=== PATIENT | female | born 1940 | race Caucasian/White ===

== ENCOUNTER 2018-05-01 04:14 | Inpatient (IN) | payer OTHER ==
[~2018-05-01] VITALS: Ht 167.6 cm; Wt 61.4 kg
[~2018-05-01 04:14] MED LIST: ASA; GLIPIZIDE; LISINOPRIL; METFORMIN; SERTRALINE
[2018-05-01] MEDS ORDERED: GLIP5TAB11 PO (04:22)
[2018-05-01] MEDS ORDERED: ATOR20TA65 PO (04:22)
[2018-05-01] MEDS ORDERED: ASPI81TA39 PO (04:22)
[2018-05-01] MEDS ORDERED: METF-446 PO (04:22)
[2018-05-01] MEDS ORDERED: AMLO5TAB66 PO (04:22)
[2018-05-01 04:34] LABS: GLUCOSE,POINT OF CARE 276 MG/DL (70-110)
[2018-05-01 05:09] LABS: BASOPHILS % (AUTO) 0.6 % (0.0-2.0); EOSINOPHILS % (AUTO) 0 % (1.0-6.0); HEMATOCRIT 33.3 % (36-46); HEMOGLOBIN 10.9 g/dL (12.0-16.0); LYMPHOCYTES % (AUTO) 6.5 % (22.0-44.0); MEAN CORPUSCULAR HEMOGLOBIN 29.3 pg (26.0-34.0); MEAN CORPUSCULAR HGB CONC 32.8 G/dL (31.0-37.0); MEAN CORPUSCULAR VOLUME 89 fL (80-100); MONOCYTES # (AUTO) 0.6 K/uL (0.1-1.0); MONOCYTES % (AUTO) 4.1 % (2.0-9.0); NEUTROPHILS # (AUTO) 13.1 K/uL (1.8-7.7); RED BLOOD CELL COUNT(AUTO) 3.74 MIL/uL (4.00-5.20); RED CELL DISTRIBUTION WIDTH 12.6 % (11.5-14.5)
[2018-05-01 05:18] LABS: NEUTROPHILS % (AUTO) 88.8 % (40.0-70.0)
[2018-05-01 05:27] LABS: ANION GAP 11 mmol/L (8-16); CALCIUM, TOTAL 8.7 mg/dL (8.8-10.5); CARBON DIOXIDE 27 mmol/L (22-29); CHLORIDE 100 mmol/L (98-107); CREATININE 0.63 mg/dL (0.60-1.30); GLUCOSE,RANDOM 276 mg/dL (70-110); POTASSIUM 4.3 mmol/L (3.5-5.1); SODIUM SERUM 138 mmol/L (136-145); UREA NITROGEN, BLOOD 12 mg/dL (7-18)
[2018-05-01 05:28] LABS: GLOMERULAR FILTR. RATE CALC > 60 mL/min (>60); PLATELET COUNT (AUTO) 248 K/uL (150-450)
[2018-05-01 05:33] LABS: ALANINE AMINOTRANSFERASE 17 U/L (12-78); ALBUMIN 3.2 g/dL (3.4-5.0); ALKALINE PHOSPHATASE 87 U/L (46-116); ASPARTATE AMINOTRANSFERASE 12 U/L (15-37); BILIRUBIN,TOTAL 0.5 mg/dL (0.1-1.0); LIPASE 95 U/L (73-393); TOTAL PROTEIN, SERUM 7.3 g/dL (6.4-8.2)
[2018-05-01] MEDS ORDERED: SODIUM CHLORIDE 0.9% 500 ML IV ONE ×2 (06:45→08:45)
[2018-05-01 06:59] LABS: APPEARANCE,URINE CLOUDY (CLEAR); BILIRUBIN,URINE NEGATIVE (NEGATIVE); GLUCOSE, URINE (UA) >=1000 mg/dL (NEGATIVE); KETONES,URINE 40 mg/dL (NEGATIVE); LEUKOCYTE ESTERASE ,URINE NEGATIVE (NEGATIVE); NITRATE,URINE NEGATIVE (NEGATIVE); OCCULT BLOOD,URINE NEGATIVE (NEGATIVE); PROTEIN,URINE SEE CONFIRM (NEGATIVE)
[2018-05-01 07:38] LABS: GLUCOSE,POINT OF CARE 214 MG/DL (70-110)
[2018-05-01 07:54] LABS: SULFOSALICYLIC ACID,URINE 2+ (Negative)
[2018-05-01 07:57] LABS: AMORPHOUS SEDIMENT,UR Many /LPF (None Seen); BACTERIA,URINE None Seen /HPF (None Seen); RBC,URINE None Seen /HPF (0-2); SQUAMOUS EPITHELIAL CELL,UR Rare /LPF (None Seen); WBC,URINE 0-2 /HPF (0-5)
[2018-05-01] MEDS ORDERED: MECLIZINE HCL 25 MG TABLET PO ONE (08:30)
[2018-05-01] MEDS ORDERED: ONDANSETRON HCL 4 MG/2 ML VIAL IVP ONE (08:45)
[2018-05-01 13:32] VITALS: BP 165/77
[2018-05-01] MEDS ORDERED: MECLIZINE HCL 25 MG TABLET PO PRN ×2 (14:30→18:15)
[2018-05-01 15:20] VITALS: BP 158/78
[2018-05-01] MEDS ORDERED: 0.9% SODIUM CHLORIDE 10 ML SYRINGE IVP PRN (18:15)
[2018-05-01] MEDS ORDERED: ONDANSETRON HCL 4 MG/2 ML VIAL IVP PRN (18:15)
[2018-05-01] MEDS ORDERED: DEXTROSE 50%-WATER 25 GM/50 ML SYRINGE IVP PRN (18:15)
[2018-05-01] MEDS ORDERED: OxyCODONE HCL/ACETAMINOPHEN 5-325 MG TABLET PO PRN ×2 (18:15)
[2018-05-01] MEDS: INSULIN LISPRO 100 UNITS/ML SQ PRN ×2 (18:34→20:25)
[2018-05-01 19:00] VITALS: BP 150/75
[2018-05-01] MEDS: ASPIRIN 81 MG CHEWABLE TABLET PO SCH (19:02)
[2018-05-01] MEDS: PANTOPRAZOLE SODIUM 40 MG/VIAL IVP SCH (19:02)
[2018-05-01] MEDS: ATORVASTATIN CALCIUM 20 MG TABLET PO SCH (19:02)
[2018-05-01] MEDS: AmLODIPine BESYLATE 5 MG TABLET PO SCH (19:03)
[2018-05-01 19:46] VITALS: BP 147/66
[2018-05-01 20:11] LABS: GLUCOMETER DEV NAME(LOC) 5S.2; GLUCOSE,POINT OF CARE 295 MG/DL (70-110)
[2018-05-01] MEDS: DOCUSATE SODIUM 100 MG CAPSULE PO SCH (20:18)
[2018-05-01 21:30] LABS: GLUCOMETER DEV NAME(LOC) 5N.2; GLUCOSE,POINT OF CARE 197 MG/DL (70-110)
[2018-05-01 23:46] VITALS: BP 135/60
[2018-05-02 05:39] VITALS: BP 144/72
[2018-05-02 06:07] LABS: BASOPHILS % (AUTO) 0.5 % (0.0-2.0); EOSINOPHILS % (AUTO) 1.6 % (1.0-6.0); HEMATOCRIT 33.6 % (36-46); HEMOGLOBIN 11.1 g/dL (12.0-16.0); LYMPHOCYTES # (AUTO) 2.5 K/uL (1.0-4.8); LYMPHOCYTES % (AUTO) 26.2 % (22.0-44.0); MEAN CORPUSCULAR HEMOGLOBIN 29.2 pg (26.0-34.0); MEAN CORPUSCULAR HGB CONC 33.2 G/dL (31.0-37.0); MEAN CORPUSCULAR VOLUME 88 fL (80-100); MONOCYTES # (AUTO) 0.9 K/uL (0.1-1.0); MONOCYTES % (AUTO) 9.4 % (2.0-9.0); NEUTROPHILS % (AUTO) 62.3 % (40.0-70.0); PLATELET COUNT (AUTO) 267 K/uL (150-450); RED BLOOD CELL COUNT(AUTO) 3.82 MIL/uL (4.00-5.20); RED CELL DISTRIBUTION WIDTH 12.9 % (11.5-14.5)
[2018-05-02] MEDS: INSULIN LISPRO 100 UNITS/ML SQ PRN ×4 (06:19→20:22)
[2018-05-02 06:26] LABS: ANION GAP 5 mmol/L (8-16); CALCIUM, TOTAL 9.2 mg/dL (8.8-10.5); CARBON DIOXIDE 31 mmol/L (22-29); CHLORIDE 104 mmol/L (98-107); CREATININE 0.65 mg/dL (0.60-1.30); GLUCOSE,RANDOM 170 mg/dL (70-110); POTASSIUM 4.3 mmol/L (3.5-5.1); SODIUM SERUM 140 mmol/L (136-145); UREA NITROGEN, BLOOD 15 mg/dL (7-18)
[2018-05-02 06:36] LABS: GLOMERULAR FILTR. RATE CALC > 60 mL/min (>60)
[2018-05-02 06:54] LABS: GLUCOMETER DEV NAME(LOC) 5N.2; GLUCOSE,POINT OF CARE 153 MG/DL (70-110)
[2018-05-02 07:25] VITALS: BP 131/65
[2018-05-02] MEDS: DOCUSATE SODIUM 100 MG CAPSULE PO SCH ×2 (08:50→20:17)
[2018-05-02] MEDS: ATORVASTATIN CALCIUM 20 MG TABLET PO SCH (08:50)
[2018-05-02] MEDS: ASPIRIN 81 MG CHEWABLE TABLET PO SCH (08:50)
[2018-05-02] MEDS: AmLODIPine BESYLATE 5 MG TABLET PO SCH (08:50)
[2018-05-02] MEDS: PANTOPRAZOLE SODIUM 40 MG/VIAL IVP SCH (08:50)
[2018-05-02 11:22] VITALS: BP 147/74
[2018-05-02 11:54] LABS: GLUCOMETER DEV NAME(LOC) 5S.2; GLUCOSE,POINT OF CARE 279 MG/DL (70-110)
[2018-05-02] MEDS: MetFORMIN HCL 500 MG TABLET PO SCH (17:05)
[2018-05-02 17:28] LABS: GLUCOMETER DEV NAME(LOC) 4E.; GLUCOSE,POINT OF CARE 199 MG/DL (70-110)
[2018-05-02 19:49] VITALS: BP 157/84
[2018-05-02 22:59] LABS: GLUCOMETER DEV NAME(LOC) 4E.; GLUCOSE,POINT OF CARE 257 MG/DL (70-110)
[2018-05-02 23:16] VITALS: BP 152/81
[2018-05-03 04:15] VITALS: BP 149/79
[2018-05-03] MEDS: INSULIN LISPRO 100 UNITS/ML SQ PRN ×2 (05:56→12:06)
[2018-05-03] MEDS ORDERED: GlipiZIDE 5 MG TABLET PO SCH (06:30)
[2018-05-03 08:05] VITALS: BP 135/74
[2018-05-03 08:09] LABS: GLUCOMETER DEV NAME(LOC) 4E.; GLUCOSE,POINT OF CARE 192 MG/DL (70-110)
[2018-05-03] MEDS: MetFORMIN HCL 500 MG TABLET PO SCH (08:26)
[2018-05-03] MEDS: AmLODIPine BESYLATE 5 MG TABLET PO SCH (08:26)
[2018-05-03] MEDS: ATORVASTATIN CALCIUM 20 MG TABLET PO SCH (08:26)
[2018-05-03] MEDS: ASPIRIN 81 MG CHEWABLE TABLET PO SCH (08:26)
[2018-05-03] MEDS: PANTOPRAZOLE SODIUM 40 MG/VIAL IVP SCH (08:26)
[2018-05-03] MEDS: DOCUSATE SODIUM 100 MG CAPSULE PO SCH (08:26)
[2018-05-03 12:06] VITALS: BP 142/68
[2018-05-03 13:39] LABS: GLUCOMETER DEV NAME(LOC) 4E.; GLUCOSE,POINT OF CARE 164 MG/DL (70-110)
== END 2018-05-03 13:40 | disposition home or self-care (01) | DRG 639 ==
LOC: EMS 04:14 → 4E 11:51 → 5N 11:53 → EMS 12:35 → 4E 05-02 15:10
PROVIDERS: ADMIT Internal Medicine; ATTEND Internal Medicine
DX: E11.65 Type 2 diabetes mellitus with hyperglycemia (principal); R42 Dizziness and giddiness; I10 Essential (primary) hypertension; E78.00 Pure hypercholesterolemia, unspecified; Z90.710 Acquired absence of both cervix and uterus; Z79.84 Long term (current) use of oral hypoglycemic drugs; Z79.899 Other long term (current) drug therapy; Z79.82 Long term (current) use of aspirin
CPT/HCPCS: 70450; 70551; 93005; 93880; 96361; 96374; C9113; G0378; J2405; J7040

== ENCOUNTER 2021-07-20 16:41 | Emergency (ER) | payer OTHER ==
[~2021-07-20] VITALS: Ht 162.6 cm; Wt 57.2 kg
[~2021-07-20 16:41] MED LIST changes: +AMLO5TAB66 PO; -ASA; +ASPI81TA39 PO; +ATOR20TA65 PO; +GLIP5TAB11 PO; -GLIPIZIDE; -LISINOPRIL; +METF-446 PO; -METFORMIN; -SERTRALINE
[2021-07-20] MEDS ORDERED: ACETAMINOPHEN 325 MG TABLET PO ONE (17:45)
[2021-07-20] MEDS ORDERED: LISI40TA9 PO (17:54)
[2021-07-20] MEDS ORDERED: CHOL25TA4 PO (17:54)
[2021-07-20 19:10] VITALS: BP 145/63
[2021-07-20] MEDS ORDERED: IBUP-2070 PO (20:39)
== END 2021-07-20 21:22 | disposition home or self-care (01) ==
LOC: EMS 16:44
DX: S02.2XXA Fracture of nasal bones, initial encounter for closed fracture (principal); S09.90XA Unspecified injury of head, initial encounter; I10 Essential (primary) hypertension; E11.9 Type 2 diabetes mellitus without complications; E78.00 Pure hypercholesterolemia, unspecified; Z79.899 Other long term (current) drug therapy; W18.39XA Other fall on same level, initial encounter; Y93.89 Activity, other specified; Y92.89 Other specified places as the place of occurrence of the external cause; Y99.8 Other external cause status
CPT/HCPCS: 70450; 70486; 99284

== ENCOUNTER 2023-10-18 13:20 | Inpatient (IN) | payer MEDICARE, MEDICAID ==
[~2023-10-18] VITALS: Ht 162.6 cm; Wt 57.2 kg
[~2023-10-18 13:20] MED LIST changes: +CHOL25TA4 PO; -GLIP5TAB11 PO; +GLIP5TAB15 PO; +IBUP-1492 PO; +LISI40TA9 PO
[2023-10-18 15:46] LABS: BASOPHILS % (AUTO) 0.4 % (0.0-2.0); HEMATOCRIT 30.3 % (36-46); LYMPHOCYTES # (AUTO) 1.8 K/uL (1.0-4.8); LYMPHOCYTES % (AUTO) 21.2 % (22.0-44.0); MEAN CORPUSCULAR HEMOGLOBIN 30.3 pg (26.0-34.0); MEAN CORPUSCULAR VOLUME 92 fL (80-100); MONOCYTES # (AUTO) 0.7 K/uL (0.1-1.0); MONOCYTES % (AUTO) 8.2 % (2.0-9.0); NEUTROPHILS # (AUTO) 5.7 K/uL (1.8-7.7); NEUTROPHILS % (AUTO) 68.2 % (40.0-70.0); PLATELET COUNT (AUTO) 204 K/uL (150-450); RED BLOOD CELL COUNT(AUTO) 3.31 MIL/uL (4.00-5.20); WHITE BLOOD COUNT (AUTO) 8.4 K/uL (4.5-11.0)
[2023-10-18 15:53] LABS: ANION GAP 10 mmol/L (8-16); CALCIUM, TOTAL 8.4 mg/dL (8.8-10.5); CARBON DIOXIDE 28 mmol/L (22-29); CHLORIDE 104 mmol/L (98-107); CREATININE 0.86 mg/dL (0.60-1.30); GLOMERULAR FILTR. RATE CALC > 60 mL/min (>60); GLUCOSE,RANDOM 81 mg/dL (70-110); POTASSIUM 4.3 mmol/L (3.5-5.1); SODIUM SERUM 142 mmol/L (136-145); UREA NITROGEN, BLOOD 23 mg/dL (7-18)
[2023-10-18 15:59] LABS: ALANINE AMINOTRANSFERASE 13 U/L (12-78); ALBUMIN 3.6 g/dL (3.4-5.0); ALKALINE PHOSPHATASE 56 U/L (46-116); ASPARTATE AMINOTRANSFERASE 10 U/L (15-37); BILIRUBIN,TOTAL 0.5 mg/dL (0.1-1.0); TOTAL PROTEIN, SERUM 6.7 g/dL (6.4-8.2)
[2023-10-18 16:00] LABS: TROPONIN I-HIGH SENSITIVITY 6 ng/L (<51)
[2023-10-18 16:10] LABS: PROTHROMBIN TIME 10.5 SEC (9.4-11.6)
[2023-10-18] MEDS ORDERED: ACETAMINOPHEN 325 MG TABLET PO PRN (21:45)
[2023-10-18] MEDS ORDERED: MAGNESIUM HYDROXIDE SUSPENSION 30 ML UDCUP PO PRN (21:45)
[2023-10-18] MEDS ORDERED: MORPHINE SULFATE 2 MG/ML SYRINGE IVP PRN (21:45)
[2023-10-18] MEDS ORDERED: HYDROCODONE/ACETAMINOPHEN 5-325 MG TABLET PO PRN (21:45)
[2023-10-18] MEDS ORDERED: BISACODYL 10 MG RECTAL RECTAL SUPPOSITORY PR PRN (21:45)
[2023-10-18] MEDS ORDERED: ONDANSETRON HCL 4 MG/2 ML VIAL IVP PRN (21:45)
[2023-10-18] MEDS ORDERED: IPRATROPIUM BROMIDE 0.5 MG/2.5 ML NEB SOLUTION NEB PRN (21:45)
[2023-10-18] MEDS ORDERED: ZOLPIDEM TARTRATE 5 MG TABLET PO PRN (21:45)
[2023-10-18] MEDS ORDERED: ALBUTEROL SULFATE 2.5 MG/0.5 ML NEB SOLUTION NEB PRN (21:45)
[2023-10-18 22:06] LABS: THYROID STIMULATING HORMONE 2.24 uIU/mL (0.36-3.74)
[2023-10-18 22:30] VITALS: BP 141/55; PULSE 39; RESP 16; TEMP 98.1; O2SAT 97
[2023-10-19] MEDS: HEPARIN SODIUM,PORCINE 5,000 UNITS/ML VIAL SQ SCH
[2023-10-19 05:00] VITALS: BP 145/82; PULSE 39; RESP 17; TEMP 97.7; O2SAT 97
[2023-10-19 08:00] VITALS: BP 152/49; PULSE 40; RESP 16; TEMP 98.1; O2SAT 97
[2023-10-19] MEDS: AmLODIPine BESYLATE 5 MG TABLET PO SCH (09:24)
[2023-10-19] MEDS: LISINOPRIL 20 MG TABLET PO SCH (09:25)
[2023-10-19] MEDS: ATORVASTATIN CALCIUM 20 MG TABLET PO SCH (09:30)
[2023-10-19] MEDS: ASPIRIN 81 MG CHEWABLE TABLET PO SCH (09:30)
[2023-10-19] MEDS: PANTOPRAZOLE SODIUM 40 MG DR TABLET PO SCH (09:30)
[2023-10-19 12:00] VITALS: BP 137/50; PULSE 37; RESP 16; TEMP 98.6; O2SAT 95
[2023-10-19 16:17] VITALS: BP 132/49; PULSE 40; RESP 17; TEMP 98.4; O2SAT 98
[2023-10-19 16:51] LABS: GLUCOMETER DEV NAME(LOC) ERT.5; GLUCOSE,POINT OF CARE 112 MG/DL (70-110)
[2023-10-19 20:51] VITALS: BP 156/70; PULSE 66; RESP 17; TEMP 98; O2SAT 94
== END 2023-10-19 21:35 | disposition short-term general hospital (02) | DRG 310 ==
LOC: EMS 13:23 → EDH 21:39 → 5S 22:29
PROVIDERS: ADMIT Hospitalist; ATTEND Hospitalist
DX: I44.1 Atrioventricular block, second degree (principal); S40.012A Contusion of left shoulder, initial encounter; D64.9 Anemia, unspecified; I10 Essential (primary) hypertension; E11.9 Type 2 diabetes mellitus without complications; E78.00 Pure hypercholesterolemia, unspecified; I49.8 Other specified cardiac arrhythmias; W18.09XA Striking against other object with subsequent fall, initial encounter; Z90.710 Acquired absence of both cervix and uterus; Y93.89 Activity, other specified; Y92.89 Other specified places as the place of occurrence of the external cause; Y99.8 Other external cause status
CPT/HCPCS: 70450; 71045; 72125; 80053; 82962; 84443; 84484; 85025; 85610; 93005; 93306; 99285; J1644; 36415-L1; 36415-TC